=== PATIENT | male | born 1970 | race Caucasian/White ===

== ENCOUNTER 2020-11-12 21:02 | Emergency (ER) | payer OTHER ==
[~2020-11-12] VITALS: Ht 180.3 cm; Wt 105.2 kg
[2020-11-12 21:05] VITALS: BP 159/106
[2020-11-14 06:06] LABS: HAV IgM AB (ANTI-HAV IgM) Negative (Negative); HEPATITIS B SURFACE AG Negative (Negative); HEPATITIS C VIRUS AB <0.1 (0.0-0.9); HIV ANTIBODY Non Reactive (Non Reactive)
== END 2020-11-12 21:44 | disposition home or self-care (01) ==
LOC: ER 21:02
PROVIDERS: Physician Assistant
DX: S71.131A Puncture wound without foreign body, right thigh, initial encounter (principal); W46.0XXA Contact with hypodermic needle, initial encounter; Y93.89 Activity, other specified; Y92.89 Other specified places as the place of occurrence of the external cause; Y99.8 Other external cause status